=== PATIENT | female | born 1990 | race Asian ===

== ENCOUNTER 2020-04-13 12:26 | Emergency (ER) | payer MEDICAID ==
[~2020-04-13] VITALS: Ht 157.5 cm; Wt 56.2 kg
[2020-04-13] MEDS ORDERED: CIPRO500 MG PO (12:46)
[2020-04-13 12:51] VITALS: BP 112/67
--- NOTE | 2020-04-13 12:53 | NUR ---
ED Nurse Note: Pt ambulated to ed c/o low back pain raditing to stmach. pt has no n/v/d. pt ambulated to restroom to obtain urine sample. pt states burning, itching, foul smell upon urination
[2020-04-13 13:03] LABS: APPEARANCE,URINE CLEAR; BILIRUBIN, URINE NEGATIVE (NEGATIVE); GLUCOSE, URINE (UA) NEGATIVE (NEGATIVE); KETONES,URINE 4+ (NEGATIVE); LEUKOCYTE ESTERASE ,URINE 1+ (NEGATIVE); NITRITE,URINE NEGATIVE (NEGATIVE); PH,URINE 8 (4.5-8.0); PROTEIN,URINE 2+ (NEGATIVE); UROBILINOGEN,URINE 1 MG/DL (0.0-1.0)
[2020-04-13 13:15] LABS: COLOR,URINE YELLOW
[2020-04-13] MEDS ORDERED: Ketorolac 30mg Inj IV ONE (13:15)
[2020-04-13] MEDS ORDERED: Omnipaque-300 100ml vial INJ PRN (13:15)
--- NOTE | 2020-04-13 13:15 | Emergency Room Report ---
History of Present Illness General Chief Complaint: Abdominal Pain Source: Patient Present Illness HPI 29-year-old female presents to the emergency department complaining of 7 out of 10 severity bilateral flank pain in addition to epigastric abdominal pain since yesterday. Patient reports she was recently seen in the ER at [facility] yesterday and diagnosed with pyelonephritis. Patient states initially she had lower abdominal pain with dysuria and malodorous urine. Patient reports that her lower abdominal symptoms have resolved however her pain has been progressive since yesterday after being discharged from ED. Patient has been taking ciprofloxacin and Tylenol. In the ER she did receive some fluids and had blood as well as urine testing. Patient reports she did not have any formal imaging performed. Patient followed up with her primary care doctor today who referred her to the emergency department for having fever of 100.7 and tachycardia with increased pain. She denies or suspicion of . She denies nausea or vomiting. She denies constipation or diarrhea. Patient denies any significant past medical history. Pt. reports she was told by her PCP today not to eat or drink anything so She has only taken one dose of Cipro so far and it was yesterday. Allergies: Coded Allergies: No Known Allergies (Unverified , 04/13/20) COVID-19 Screening Contact w/high risk pt: No Experienced COVID-19 symptoms?: Yes COVID-19 Testing performed AIR[employer]: No Patient History Past Medical History: see triage record Past Surgical History: none Pertinent Family History: none Last Menstrual Period: 04/05/20 Now: No Reviewed Nursing Documentation: PMH: Agreed; PSxH: Agreed Nursing Documentation-PMH Past Medical History: No Stated History Review of Systems All Other Systems: negative except mentioned in HPI Physical Exam Vital Signs Date Time Temp Pulse Resp B/P (MAP) Pulse Ox O2 Delivery O2 Flow Rate FiO2 04/13/20 12:41 97.9 113 16 112/67 (82) 98 Room Air Sp02 EP Interpretation: reviewed, normal General Appearance: no apparent distress, alert, GCS 15, non-toxic Head: normocephalic, atraumatic Eyes: bilateral eye normal inspection, bilateral eye PERRL ENT: hearing grossly normal, normal voice Neck: full range of motion Respiratory: chest non-tender, lungs clear, normal breath sounds, speaking full sentences Cardiovascular #1: regular rate, rhythm, tachycardia Gastrointestinal: normal bowel sounds, soft, tenderness - epigastric ttp, right CVA Genitourinary: normal inspection, CVA tenderness (R), CVA tenderness (L) Musculoskeletal: back normal, normal range of motion, gait/station normal, non- tender Neurologic: alert, motor strength/tone normal, oriented x3, sensory intact, responsive, speech normal Psychiatric: judgement/insight normal Skin: no rash, normal color Medical Decision Making PA Attestation Dr. Hughes Is my supervising Physician whom patient management has been discussed with. Diagnostic Impression: Primary Impression: Pyelonephritis ER Course 29-year-old female presents to the emergency department complaining of 7 out of 10 severity bilateral flank pain in addition to epigastric abdominal pain since yesterday. Patient reports she was recently seen in the ER at [facility] yesterday and diagnosed with pyelonephritis. Patient states initially she had lower abdominal pain with dysuria and malodorous urine. Patient reports that her lower abdominal symptoms have resolved however her pain has been progressive since yesterday after being discharged from ED. Patient has been taking ciprofloxacin and Tylenol. In the ER she did receive some fluids and had blood as well as urine testing. Patient reports she did not have any formal imaging performed. Patient followed up with her primary care doctor today who referred her to the emergency department for having fever of 100.7 and tachycardia with increased pain. She denies or suspicion of . She denies nausea or vomiting. She denies constipation or diarrhea. Patient denies any significant past medical history. Pt. reports she was told by her PCP today not to eat or drink anything so She has only taken one dose of Cipro so far and it was yesterday. Ddx considered but are not limited to Diverticulitis, acute appendicitis, diarrhea,UC, PUD, GE, pancreatitis, gallstone, kidney stone, pyelonephritis, UTI , obstruction, Vital signs: Pt is tachycardic otherwise VS are WNL, pt. is afebrile H&PE are most consistent with Pyelonephritis vs, billiary pathology or renal calculi/obstruction ORDERS: -CBC: WBC's of 18k -- C/w acute infection - CMP:WNL - Lipase: WNL - UA: elevated inflammatory markers with few bacteria -Urine Hcg: Negative - CT abdomen and pelvis with contrast: acute pyelonephritis characterized by perinephritic stranding. ED INTERVENTIONS: -- Toradol -1g Rocephin IV - Pt. reports her pain is resolved after interventions. D/w pt. that she will be treated as outpatient with her previously prescribed antibiotics. She is given strict ED return precautions. D/w pt. that it is imperative that she take and finish the prescribed antibiotics. D/w pt. will d/c with rx for norco for pain control. DISCHARGE: At this time pt. is stable for d/c to home. Will provide printed patient care instructions, and any necessary prescriptions. Care plan and follow up instructions have been discussed with the patient prior to discharge. Labs Test 04/13/20 12:30 04/13/20 12:47 White Blood Count 18.1 K/UL (4.8-10.8) Red Blood Count 4.04 M/UL (4.20-5.40) Hemoglobin 11.6 G/DL (12.0-16.0) Hematocrit 36.2 % (37.0-47.0) Mean Corpuscular Volume 90 FL (80-99) Mean Corpuscular Hemoglobin 28.8 PG (27.0-31.0) Mean Corpuscular Hemoglobin Concent 32.1 G/DL (32.0-36.0) Red Cell Distribution Width 12.0 % (11.6-14.8) Platelet Count 269 K/UL (150-450) Mean Platelet Volume 5.9 FL (6.5-10.1) Neutrophils (%) (Auto) % (45.0-75.0) Lymphocytes (%) (Auto) % (20.0-45.0) Monocytes (%) (Auto) % (1.0-10.0) Eosinophils (%) (Auto) % (0.0-3.0) Basophils (%) (Auto) % (0.0-2.0) Differential Total Cells Counted 100 Neutrophils % (Manual) 85 % (45-75) Lymphocytes % (Manual) 6 % (20-45) Monocytes % (Manual) 7 % (1-10) Eosinophils % (Manual) 0 % (0-3) Basophils % (Manual) 0 % (0-2) Band Neutrophils 2 % (0-8) Platelet Estimate Adequate Platelet Morphology Normal Red Blood Cell Morphology Normal Sodium Level 140 MMOL/L (136-145) Potassium Level 3.8 MMOL/L (3.5-5.1) Chloride Level 102 MMOL/L (98-107) Carbon Dioxide Level 23 MMOL/L (21-32) Anion Gap 15 mmol/L (5-15) Blood Urea Nitrogen 8 mg/dL (7-18) Creatinine 0.7 MG/DL (0.55-1.30) Estimat Glomerular Filtration Rate > 60 mL/min (>60) Glucose Level 126 MG/DL (74-106) Calcium Level 9.0 MG/DL (8.5-10.1) Aspartate Amino Transf (AST/SGOT) 42 U/L (15-37) Alanine Aminotransferase (ALT/SGPT) 132 U/L (12-78) Lipase 87 U/L (73-393) Urine Color Yellow Urine Appearance Clear Urine pH 8 (4.5-8.0) Urine Specific [place] 1.010 (1.005-1.035) Urine Protein 2+ (NEGATIVE) Urine Glucose (UA) Negative (NEGATIVE) Urine Ketones 4+ (NEGATIVE) Urine Blood 3+ (NEGATIVE) Urine Nitrite Negative (NEGATIVE) Urine Bilirubin Negative (NEGATIVE) Urine Urobilinogen 1 MG/DL (0.0-1.0) Urine Leukocyte Esterase 1+ (NEGATIVE) Urine RBC 10-15 /HPF (0 - 2) Urine WBC 5-10 /HPF (0 - 2) Urine Squamous Epithelial Cells Few /LPF (NONE/OCC) Urine Bacteria Few /HPF (NONE) Urine HCG, Qualitative Negative (NEGATIVE) CT/MRI/US Diagnostic Results CT/MRI/US Diagnostic Results : Imaging Test Ordered: CT Abdomen and Pelvis w. Contrast Impression "Impression: Abnormal appearing right kidney, with heterogeneous parenchymal attenuation, perinephric and periureteral fat stranding, and urothelial enhancement. Findings are consistent with stated clinical history of acute pyelonephritis. Incidental finding of intrauterine device".--Per official radiology report- Please see report for specific details. Last Vital Signs Date Time Temp Pulse Resp B/P (MAP) Pulse Ox O2 Delivery O2 Flow Rate FiO2 04/13/20 12:51 113 16 Room Air 04/13/20 12:51 97.9 112/67 98 Disposition: HOME, SELF-CARE Condition: Stable Scripts Hydrocodone Bit/Acetaminophen 5-325* (NORCO 5-325 TABLET*) 1 Each Tablet 1 TAB ORAL Q4H PRN for FOR PAIN, #15 TAB 0 Refills Prov: Funmi Blanco 04/13/20 Patient Instructions: Pyelonephritis, Adult, [id number] Additional Instructions: Take medications as directed. TAKE YOUR ANTIBIOTICS: CIPROFLOXACIN Your CT Imaging shows uncomplicated infection of the right kidney. You have received a dose of IV antibiotics here in the ED. Follow up with a Primary Care Provider in 3-5 days, even if your symptoms have resolved. Return sooner to ED if new symptoms occur, or current symptoms become worse. - Please note that this Emergency Department Report was dictated using [employer] assistant technology software, occasionally this can lead to erroneous entry secondary to interpretation by the dictation equipment. Funmi Blanco Apr 13, 2020 13:15
[2020-04-13 13:48] LABS: HEMATOCRIT 36.2 % (37.0-47.0); HEMOGLOBIN 11.6 G/DL (12.0-16.0); MEAN CORPUSCULAR VOLUME 90 FL (80-99); PLATELET COUNT 269 K/UL (150-450); RED BLOOD COUNT 4.04 M/UL (4.20-5.40); WHITE BLOOD COUNT 18.1 K/UL (4.8-10.8)
[2020-04-13 13:52] LABS: ANION GAP 15 mmol/L (5-15); BLOOD UREA NITROGEN 8 mg/dL (7-18); CARBON DIOXIDE 23 MMOL/L (21-32); CHLORIDE 102 MMOL/L (98-107); CREATININE 0.7 MG/DL (0.55-1.30); POTASSIUM 3.8 MMOL/L (3.5-5.1); SODIUM 140 MMOL/L (136-145)
--- NOTE | 2020-04-13 14:13 | NUR ---
ED Nurse Note: PT TAKEN TO CT ON WHEELCHAIR
[2020-04-13] MEDS ORDERED: cefTRIAXone 1 GM in NS 55 ML IVPB ONE (14:30)
[2020-04-13 14:47] LABS: ALANINE AMINOTRANSFERASE 132 U/L (12-78)
[2020-04-13 14:50] VITALS: BP 115/95
--- NOTE | 2020-04-13 15:18 | Diagnostic Imaging Report ---
Clinical Indication: 7 out of 10 severity bilateral flank pain in addition to epigastric abdominal pain since yesterday Technique: No oral contrast utilized, per emergency room physician request IV administration nonionic contrast. Venous phase spiral acquisition obtained through the abdomen and pelvis. Multiplanar reconstructions were generated. Total dose length product 199 mGycm. CTDIvol(s) 3.9 mGy. Dose reduction achieved using automated exposure control Comparison: none Findings: The right kidney demonstrates multiple areas of ill-defined wedge-shaped low-attenuation. There is also a subcentimeter well-defined low-attenuation lesion in the lower pole. There is mild perinephric fat stranding. There is right periureteral fat stranding and enhancement of the urothelium. The left kidney is unremarkable. Bilaterally, no hydronephrosis demonstrated. No renal or ureteral calculi. The bladder is unremarkable The liver, gallbladder, bile ducts, pancreas, spleen, adrenals are unremarkable. No retroperitoneal or mesenteric mass or adenopathy. No pelvic mass or adenopathy. There is an intrauterine device within the uterus, appears positioned appropriately. Lack of enteric contrast limits assessment of the GI tract. There are a few colonic diverticula. No evidence of diverticulitis. No small bowel distention. No free or loculated intraperitoneal gas or fluid. The appendix is normal. The distal esophagus, stomach, duodenum are unremarkable. The included lung bases demonstrate posterior dependent atelectatic changes. The bones are unremarkable. Impression: Abnormal appearing right kidney, with heterogeneous parenchymal attenuation, perinephric and periureteral fat stranding, and urothelial enhancement. Findings are consistent with stated clinical history of acute pyelonephritis Incidental finding of intrauterine device The CT scanner at [facility] is accredited by the [employer] and the scans are performed using protocols designed to limit radiation exposure to as low as reasonably achievable to attain images of sufficient resolution adequate for diagnostic evaluation.
[2020-04-13] MEDS ORDERED: NORCO 5-325 TA1 EAC1 ORAL (15:49)
[2020-04-13 15:55] VITALS: BP 106/74
--- NOTE | 2020-04-13 15:55 | NUR ---
ER DISCHARGE NOTE: Patient is cleared to be discharged per ERMD, pt is aox4, on room air, with stable vital signs. pt was given dc and prescription instructions, pt was able to verbalize understanding, pt id band and iv site removed without complications. pt is able to ambulate with steady gait. pt took all belongings.
== END 2020-04-13 15:53 | disposition home or self-care (01) ==
LOC: EMR 13:20
DX: N12 Tubulo-interstitial nephritis, not specified as acute or chronic (principal); Z97.5 Presence of (intrauterine) contraceptive device
CPT/HCPCS: 36415; 74177; 80048; 81003; 81025; 83690; 84450; 84460; 85007; 85025; 96365; 96375; J0696; J1885; Q9967; Z7502; 99284